=== PATIENT | male | born 1950 | race Caucasian/White ===

== ENCOUNTER 2021-01-24 02:43 | Emergency (ER) | payer MEDICARE, BC ==
[2021-01-24] MEDS ORDERED: SEPTRA DS 8001 TAB PO (02:54)
[2021-01-24] MEDS ORDERED: CEPHALEXIN500 M1 PO (02:54)
[2021-01-24 04:22] LABS: BASO # 0.02 (0.02-0.10); EOS # 0.54 (0.04-0.40); HEMATOCRIT 46.3 % (42.0-52.0); HEMOGLOBIN 15.5 g/dL (13.5-18.0); LYMPH# 1.12 (1.50-4.00); MEAN CELL VOLUME 87 fl (78-100); MEAN CORPUSCULAR HEMOGLOBIN 29 pg (27-31); MEAN CORPUSCULAR HGB CONC 34 g/dL (33-37); MEAN PLATELET VOLUME 10.1 fl (7.4-10.4); MONO # 0.72 (0.20-0.80); NEU # 8.34 (1.40-6.50); PLATELET COUNT 260 K/mm3 (130-400); RED BLOOD COUNT 5.31 M/mm3 (4.20-5.60); RED CELL DISTRIBUTION WIDTH 13.2 % (11.5-14.5); WHITE BLOOD COUNT 10.8 K/mm3 (4.8-10.8)
[2021-01-24 04:35] LABS: POTASSIUM 4.2 mmol/L (3.5-5.1)
[2021-01-24 04:36] LABS: CALCIUM 9.6 mg/dL (8.3-10.5)
[2021-01-24 04:37] LABS: TOTAL PROTEIN 7.4 g/dL (6.2-8.1)
[2021-01-24 04:39] LABS: TOTAL BILIRUBIN 0.8 mg/dL (0.2-1.2)
[2021-01-24 05:01] LABS: PARTIAL THROMBOPLASTIN TIME 22.7 SECONDS (21.0-32.0); PROTHROMBIN TIME 9.3 SECONDS (9.0-12.0)
[2021-01-24 05:02] LABS: URINE APPEARANCE CLEAR; URINE BILIRUBIN NEGATIVE (NEGATIVE); URINE BLOOD TRACE (NEGATIVE); URINE COLOR YELLOW; URINE GLUCOSE NEGATIVE (NEGATIVE); URINE KETONE NEGATIVE (NEGATIVE); URINE LEUKOCYTE ESTERASE NEGATIVE (NEGATIVE); URINE NITRATE NEGATIVE (NEGATIVE); URINE PROTEIN(semi-quant) NEGATIVE (NEGATIVE); URINE UROBILINOGEN NORMAL (NORMAL); URINE WBC 0-1 /hpf (0-3)
[2021-01-24 05:21] LABS: ERYTHROCYTE SEDIMENTATION RATE 4 mm/hr (0-20)
[2021-01-24 06:29] VITALS: BP 124/86
== END 2021-01-24 06:30 | disposition home or self-care (01) ==
LOC: ED 02:43
PROVIDERS: Nurse Practitioner Family
DX: T78.3XXA Angioneurotic edema, initial encounter (principal); L03.319 Cellulitis of trunk, unspecified
CPT/HCPCS: J0696

== ENCOUNTER 2021-01-27 06:02 | Outpatient (RCR) | payer MEDICARE, BC ==
[2021-01-25 06:10] VITALS: BP 136/82
[2021-01-25 06:29] VITALS: BP 123/84
[2021-01-26 06:02] VITALS: BP 139/81
[~2021-01-27] VITALS: Ht 177.8 cm; Wt 90.5 kg
[~2021-01-27 06:02] MED LIST: CEPHALEXIN500 M1 PO; SEPTRA DS 8001 TAB PO
[2021-01-27 06:10] VITALS: BP 130/84
== END 2021-01-27 07:00 | disposition home or self-care (01) ==
LOC: AMSURD 06:02
DX: L03.90 Cellulitis, unspecified (principal); Z79.899 Other long term (current) drug therapy
CPT/HCPCS: J0696

== ENCOUNTER → 2023-10-02 | Outpatient (CLI) | payer MEDICARE, BC | LOC: LAB 11:26 | DX: C61 Malignant neoplasm of prostate (principal) ==

== ENCOUNTER → 2024-05-12 | Outpatient (CLI) | payer MEDICARE, BC | LOC: RAD 13:40 | DX: M47.816 Spondylosis without myelopathy or radiculopathy, lumbar region (principal); M47.812 Spondylosis without myelopathy or radiculopathy, cervical region ==

== ENCOUNTER → 2024-06-12 | Outpatient (CLI) | payer MEDICARE, BC | LOC: LAB 09:36 | DX: C61 Malignant neoplasm of prostate (principal) ==

== ENCOUNTER → 2024-09-11 | Outpatient (CLI) | payer MEDICARE, BC | LOC: LAB 11:14 | DX: C61 Malignant neoplasm of prostate (principal) ==